=== PATIENT | female | born 2000 | race Caucasian/White ===

== ENCOUNTER 2025-05-15 20:01 | Outpatient (CLI) | payer OTHER, SELFPAY | END 2025-05-15 20:02 | disposition home or self-care (01) | PROVIDERS: Visit Provider Internal Medicine | DX: G47.33 Obstructive sleep apnea (adult) (pediatric) (principal); G47.10 Hypersomnia, unspecified; G47.26 Circadian rhythm sleep disorder, shift work type | CPT/HCPCS: 95810 ==